=== PATIENT | female | born 1960 | race Caucasian/White ===

== ENCOUNTER → 2016-07-18 | Outpatient (CLI) | payer BC ==
[~2016-07-18] MED LIST: ASPEC81 PO; CALCTAB5 PO; CLB/200 PO; CLR10 PO; DULO60CA44 PO; LOSA1TAB PO; PANT40TA PO; [UNRECOGNIZED DRUG - CODE] PO
--- NOTE | 2016-07-18 16:28 | MAMMOGRAPHY REPORT ---
BILATERAL DIGITAL SCREENING MAMMOGRAM TOMOSYNTHESIS WITH CAD: 07/18/2016 CLINICAL HISTORY: Routine screening. Patient has no complaints. TECHNIQUE: Breast tomosynthesis in addition to standard 2D mammography was performed. Current study was also evaluated with a Computer Aided Detection (CAD) system. COMPARISON: Comparison is made to exams dated: 07/12/2015 mammogram and 07/07/2014 mammogram - [facility]. BREAST COMPOSITION: The tissue of both breasts is heterogeneously dense, which may obscure small ma sses. FINDINGS: No suspicious masses, calcifications, or areas of architectural distortion are noted in e ither breast. There has been no significant interval change compared to prior exams. Bilateral asym metries are stable. IMPRESSION: ACR BI-RADS CATEGORY 2: BENIGN There is no mammographic evidence of malignancy. A 1 year screening mammogram is recommended. The p atient will receive written notification of the results. Approximately 10% of breast cancers are not detected with mammography. A negative mammographic repor t should not delay biopsy if a clinically suggestive mass is present. Bettina Graham M.D. ah/:07/18/2016 15:03:05 Supervisor Whipped Topping: Laura GALAVIZ,R, M, [facility] letter sent: Normal 1/2 BI-RADS Code: ACR BI-RADS Category 2: Benign
== END ==
LOC: C.MAMM 14:41
PROVIDERS: ATTEND Family Medicine
DX: Z12.31 Encounter for screening mammogram for malignant neoplasm of breast (principal)

== ENCOUNTER → 2016-09-16 | Outpatient (CLI) | payer BC | END | disposition home or self-care (01) | LOC: C.PAPS 14:34 | PROVIDERS: ATTEND Physician Assistant | DX: Z01.419 Encounter for gynecological examination (general) (routine) without abnormal findings (principal) ==

== ENCOUNTER → 2017-02-20 | Outpatient (CLI) | payer BC ==
[~2017-02-20] VITALS: Ht 162.6 cm; Wt 92.2 kg
[2017-02-20 13:10] VITALS: BP 147/94; PULSE 72; Ht 162.6 cm; Wt 92.2 kg
== END | disposition home or self-care (01) ==
LOC: C.NEUR 12:51
PROVIDERS: ATTEND Internal Medicine Pulmonary Disease
DX: G47.33 Obstructive sleep apnea (adult) (pediatric) (principal)

== ENCOUNTER → 2017-03-25 | Outpatient (CLI) | payer BC ==
--- NOTE | 2017-03-26 06:23 | SPLIT NIGHT TECHNICIAN REPORT ---
[facility] Split Night Polysomnogram - Senior Risk Manager Report Study date: 03/25/2017 Referring Physician: Dr. Antione Carrillo DO Name: MCKENNA SERRANO Senior Risk Manager: JENNI Houser. Date of : 1960 Height: 57 years, Height 5' 4" Sex: Female Weight: 203.3 lbs Age: 57 Neck Circum:16.5in. BMI: Medications: 34.89 Losartan Potassium 100mg, ASA 81mg, B-12 1000mcg, Calcium, Celebrex 200mg, Cymbalta 60mg, Fiber Gummies, Flonase, gabapentin 100mg, Glucosamine Chondroitin, Losartan Potassium 100mg, Pantoprazole Sodium 20mg, Ventolin HFA 108mcg/act Patient History Study started on room air with no ETCO2 monitoring in room #8. 57 yr old female here tonight for a possible split study if AHI>15 after two hours. She has a history of EDS, loud snoring and bruxism. Her ESS=16/24. Neck circ=16.5inches Parameters Monitored NPSG: E1-M2, E2-M1, Fp1-M2, Fp2-M1, F3-M2, F4-M2, F4-M1, C3-M2, C4-M2, C4-M1, O1-M2, O2-M2, O2-M1, T3-M2, T4-M1, P3-M2, P4-M1, CHIN1, CHIN2, HR, EKG, Legs, PFLOW, SNOR, FLOW, CFLOW, Tidal Volume, THOR, ABDO, SpO2, PLTH, CPRESS, ETCO2 Wave, ETCO2, pH SLEEP SUMMARY DATA DIAGNOSTIC TREATMENT Lights Out: 10:09:04 PM 1:50:04 AM Lights On: 1:34:34 AM 6:12:34 AM Total Recording Time (TRT): 206.0 min. 262.5 min. Total Sleep Time (TST): 199.5 min. 232.0 min. NREM Time: 183.0 min. 146.0 min. REM Time: 16.5 min. 86.0 min. Sleep Period Time (SPT): 200.5 min. 247.5 min. Sleep Efficiency (SE): 97 % 88 % Sleep Latency: 5.0 min. 15.0 min. Arousal Index: 9.6 6.7 PAP Treatment Levels: 4, 5, 6, 7, 8, 9, 10, 11, 12, 13, 14 * Optimal Pressure(s) SLEEP STAGING DATA DIAGNOSTIC TREATMENT Duration (min) TST % Duration (min) TST % Stage Wake: 6.0 min. -- 30.5 min. -- WASO: 1.0 min. -- 15.5 min. -- NREM: 183.0 min. 92 % 146.0 min. 63 % Stage N1: 3.5 min. 2 % 12.5 min. 5 % Stage N2: 115.5 min. 58 % 118.5 min. 51 % Stage N3: 64.0 min. 32 % 15.0 min. 6 % REM: 16.5 min. 8 % 86.0 min. 37 % POSITIONAL DATA Event Count Index Event Count Index Supine: 52 16 84 21.7 Supine NREM: 37 12.1 28 11.5 Supine REM: 15 55 56 39 Non-Supine: N/A N/A N/A N/A Non-Supine NREM: N/A N/A N/A N/A Non-Supine REM: N/A N/A N/A N/A AROUSAL SUMMARY DATA: Event Count Index Event Count Index Apnea Arousals: 1 0.3 2 5.4 Hypopnea Arousals: 12 3.6 7 1.8 Snore Arousals: 5 1.5 3 0.8 PLM Arousals: 0 0.0 0 0.0 Non-Specific Arousals: 6 1.8 10 2.6 Total Arousals: 32 9.6 26 6.7 MYOCLONUS (PLM) Event Count Index Event Count Index PLM: 0 0.0 0 0.0 PLM AROUSAL: 0 0.0 0 0.0 PLM W/O AROUSAL 0 0.0 0 0.0 PLM W/RESP EVENT 0 0.0 0 0.0 MYOCLONUS (PLM) Event Count Index Event Count Index LM: 8 9.0 49 12.7 LM AROUSAL: 8 2.4 5 1.3 LM W/O AROUSAL LM W/RESP EVENT LM NON SPECIFIC 17 5.1 31 8.0 HEART RATE DATA DIAGNOSTIC TREATMENT Sleep (bpm): 60 59 REM (bpm): 92 94 NREM (bpm): 92 92 Tachycardia Count: 0 0 Tachycardia Duration: 0.00 0 Bradycardia Count: 0 0 Bradycardia Duration: 0.00 0 DIAGNOSTIC PORTION TREATMENT PORTION RESPIRATORY DATA Event Count Index Event Count Index AHI: -- 15.6 -- 21.7 RDI: -- 15.6 -- 22 Obstructive Apnea: 1 0.3 16 4.1 Central Apnea: 0 0.0 5 1.3 Mixed Apnea: 0 0.0 0 0.0 Hypopnea: 51 15.3 63 16.3 RERA: 0 0.0 0 0.0 Total Apneas: 1 0.3 21 5.4 RESPIRATORY DATA REM NREM SLEEP REM NREM SLEEP Supine Position: Obstructive Apneas: 0 1 1 14 2 16 Central Apneas: 0 0 0 0 5 5 Mixed Apneas: 0 0 0 0 0 0 Hypopneas: 15 36 51 42 21 63 RERA 0 0 0 0 0 0 Total Supine Events: 15 37 52 56 28 84 Supine AHI: 55 12.1 16 39 11.5 21.7 Supine RDI: 54.5 12.1 15.6 39.1 11.5 21.7 REM NREM SLEEP REM NREM SLEEP Non-Supine Position: Obstructive Apneas: N/A N/A N/A N/A N/A N/A Central Apneas: N/A N/A N/A N/A N/A N/A Mixed Apneas: N/A N/A N/A N/A N/A N/A Hypopneas: N/A N/A N/A N/A N/A N/A RERA N/A N/A N/A N/A N/A N/A Total Supine Events: N/A N/A N/A N/A N/A N/A Supine AHI: N/A N/A N/A N/A N/A N/A Supine RDI: N/A N/A N/A N/A N/A N/A OXYGEN DESTAURATION DATA: Event Count Index Event Count Index REM Desaturations: 19 69.1 53 37.0 NREM Desaturations: 48 15.7 39 16.0 SNORE DATA DIAGNOSTIC TREATMENT Snore Time: 6.8 2:05:04 AM Snore TST%: 2 1 Snore Arousal Count: 5 3 Snore Arousal Index: 1.5 0.8 Desaturation Event Summary: Minimum %SpO2 Event Count Mean/Min/Max Duration(sec.) Desaturation Index % Time In Bed > 90 157 25.4 / 6.3 / 60.0 24.5 82.8 86 - 90 16 21.4 / 6.0 / 56.8 12.2 17.0 81 - 85 0 N/A 0.0 0.2 76 - 80 0 N/A 0.0 0.0 71 - 75 0 N/A 0.0 0.0 66 - 70 0 N/A 0.0 0.0 61 - 65 0 N/A 0.0 0.0 56 - 60 0 N/A 0.0 0.0 51 - 55 0 N/A 0.0 0.0 < 50 0 N/A 0.0 0.0 OXYGEN SATURATION DATA DIAGNOSTIC TREATMENT SpO2 Mean Sleep: 92 % 93 % SpO2 Mean REM: 92 % 94 % SpO2 Mean NREM: 92 % 92 % SpO2 Minimum Sleep: 84 % 84 % SpO2 Minimum REM: 84 % 86 % SpO2 Minimum NREM: 84 % 84 % Time Below 90% (TST): 7.0 16.9 Time Below 88% (TST): 2.0 2.3 Total REM NREM Awake <50% 0.0 min. 0.0 min. 0.0 min. 0.0 min. 51 - 60% 0.0 min. 0.0 min. 0.0 min. 0.0 min. 61 - 70% 0.0 min. 0.0 min. 0.0 min. 0.0 min. 71 - 80% 0.0 min. 0.0 min. 0.0 min. 0.0 min. 81 - 90% 79.9 min. 11.5 min. 66.5 min. 1.9 min. 91 - 100% 384.0 min. 91.0 min. 262.0 min. 31.1 min. Average 93 94 92 93 Minimum SpO2 82 84 84 82 Desaturation Event Index 20.9 42.1 15.9 9.9 # Desat. Events below 89% 43 15 25 3 Time(%) with Saturation below 89% 2.3 0.8 1.4 0.1 Time(min.) with Saturation below 89% 10.8 3.7 6.6 0.5 Recording Senior Risk Manager Comments: Ms. Serrano slept in the supine position. No cardiac arrhythmia or PLM's noted. No bruxism noted. Snoring was noted and scored as a 3 on a scale of 1 through 5. (0=no snoring, 5=snoring loud enough to be heard through a closed door or down the hill way) At 1:15am she had met specific Split-Night criteria during the diagnostic portion of this study. CPAP was initiated at +4 CMH2O and up-titrated to a level of +14 CMH2O. An optimal pressure was not obtained because there was not enough time. If she would have had a few more hours to sleep it would have been a better study. Her second REM period with cpap did not happen until after 5am. A small Quattro Air full face mask by [employer] was used during titration. She awoke to use the restroom 1 time during the night. She stated that she slept a little worse than when at home. The final report will be interpreted and signed by a sleep physician. The completed physician report will then be placed in the patient medical record. Therapy Event: Therapy (cm H20) 0 4 5 6 7 8 Total Time at Pressure (min.) 205.5 22.6 13.4 53.8 8.5 11.4 TST at Pressure (min.) 199.5 6.6 13.4 52.8 8.5 10.4 # Periods 1 1 1 1 1 1 Sleep Onset (min.) 5.0 15.0 0.0 0.0 0.0 0.0 REM Onset (min.) 120.0 N/A N/A 48.6 0.0 0.0 Sleep Efficiency % 97 29 100 98 100 91 Wakefulness (%) 2.9 70.8 0.0 1.9 0.0 8.8 Wakefulness (min.) 6.0 16.0 0.0 1.0 0.0 1.0 NREM 1 (%) 1.7 4.4 3.7 2.8 0.0 8.8 NREM 1 (min.) 3.5 1.0 0.5 1.5 0.0 1.0 NREM 2 (%) 56.2 24.7 96.3 57.7 0.0 0.0 NREM 2 (min.) 115.5 5.6 12.9 31.1 0.0 0.0 NREM 3 (%) 31.1 0.0 0.0 27.9 0.0 0.0 NREM 3 (min.) 64.0 0.0 0.0 15.0 0.0 0.0 REM (%) 8.0 0.0 0.0 9.8 100.0 82.4 REM (min.) 16.5 0.0 0.0 5.3 8.5 9.4 # Arousals 32 0 2 4 1 2 Arousal Index 9.6 0.0 9.0 4.5 7.0 11.6 # Snore 361 6 6 9 10 1 Snore Index 108.6 54.7 26.9 10.2 70.4 5.8 AHI 15.6 109.3 26.9 5.7 70.4 40.5 AHI Supine 15.6 109.3 26.9 5.7 70.4 40.5 AHI Non-Supine N/A N/A N/A N/A N/A N/A NREM AHI 12.1 109.3 26.9 1.3 N/A 0.0 REM AHI 54.5 N/A N/A 45.3 70.4 44.9 RDI 15.6 109.3 26.9 5.7 70.4 40.5 # Obstructive 1 1 0 3 4 5 # Central Ap 0 4 0 0 0 0 # Mixed 0 0 0 0 0 0 # Hypopneas 51 7 6 2 6 2 RERAS 0 0 0 0 0 0 Total Respiratory Events 52 12 6 5 10 7 Time Below SpO2 89.00% (min.) 3.9 0.8 0.9 3.4 0.2 0.1 Mean NREM SpO2 (%) 92 91 90 91 N/A 94 Mean REM SpO2 (%) 92 N/A N/A 91 92 92 Mean Sleep SpO2 (%) 92 91 90 91 92 93 Min NREM SpO2 (%) 84 86 85 84 N/A 91 Min REM SpO2 (%) 84 N/A N/A 86 88 88 Position Supine (min.) 199.5 6.6 13.4 52.8 8.5 10.4 Position Non-supine (min.) 0.0 0.0 0.0 0.0 0.0 0.0 LM Index Sleep 9.0 9.1 9.0 9.1 21.1 17.4 LM Index NREM 8.5 9.1 9.0 7.6 N/A 0.0 LM Index REM 14.5 N/A N/A 22.7 21.1 19.2 Mean Heart Rate (bpm) 60 53 56 60 66 64 Min Heart Rate (bpm) 51 50 52 55 60 57 Therapy (cm H20) 9 10 11 12 13 14 Total Time at Pressure (min.) 25.5 76.6 19.0 14.5 8.0 9.2 TST at Pressure (min.) 16.0 74.1 19.0 14.0 8.0 9.2 # Periods 1 1 1 1 1 1 Sleep Onset (min.) 0.0 0.0 0.0 0.0 0.0 0.0 REM Onset (min.) 0.0 66.8 0.0 0.0 0.0 0.0 Sleep Efficiency % 62 96 100 96 100 100 Wakefulness (%) 37.2 3.3 0.0 3.4 0.0 0.0 Wakefulness (min.) 9.5 2.5 0.0 0.5 0.0 0.0 NREM 1 (%) 5.9 7.8 0.0 6.9 0.0 0.0 NREM 1 (min.) 1.5 6.0 0.0 1.0 0.0 0.0 NREM 2 (%) 42.0 76.1 0.0 0.0 0.0 0.0 NREM 2 (min.) 10.7 58.3 0.0 0.0 0.0 0.0 NREM 3 (%) 0.0 0.0 0.0 0.0 0.0 0.0 NREM 3 (min.) 0.0 0.0 0.0 0.0 0.0 0.0 REM (%) 14.9 12.8 100.0 89.7 100.0 100.0 REM (min.) 3.8 9.8 19.0 13.0 8.0 9.2 # Arousals 2 10 2 3 0 0 Arousal Index 7.5 8.1 6.3 12.9 0.0 0.0 # Snore 0 4 1 0 0 0 Snore Index 0.0 3.2 3.2 0.0 0.0 0.0 AHI 18.7 10.5 34.8 25.7 44.9 19.5 AHI Supine 18.7 10.5 34.8 25.7 44.9 19.5 AHI Non-Supine N/A N/A N/A N/A N/A N/A NREM AHI 14.7 4.7 N/A 60.0 N/A N/A REM AHI 31.5 49.1 34.8 23.1 44.9 19.5 RDI 18.7 10.5 34.8 25.7 44.9 19.5 # Obstructive 1 1 1 0 0 0 # Central Ap 1 0 0 0 0 0 # Mixed 0 0 0 0 0 0 # Hypopneas 3 12 10 6 6 3 RERAS 0 0 0 0 0 0 Total Respiratory Events 5 13 11 6 6 3 Time Below SpO2 89.00% (min.) 0.0 0.7 0.0 0.1 0.2 0.0 Mean NREM SpO2 (%) 93 94 N/A 97 N/A N/A Mean REM SpO2 (%) 93 94 95 95 95 96 Mean Sleep SpO2 (%) 93 94 95 95 95 96 Min NREM SpO2 (%) 90 87 N/A 95 N/A N/A Min REM SpO2 (%) 89 87 89 88 87 93 Position Supine (min.) 16.0 74.1 19.0 14.0 8.0 9.2 Position Non-supine (min.) 0.0 0.0 0.0 0.0 0.0 0.0 LM Index Sleep 7.5 13.8 19.0 21.4 7.5 6.5 LM Index NREM 0.0 8.4 N/A 0.0 N/A N/A LM Index REM 31.5 49.1 19.0 23.1 7.5 6.5 Mean Heart Rate (bpm) 56 57 61 58 61 62 Min Heart Rate (bpm) 51 51 54 51 54 57
--- NOTE | 2017-03-28 10:15 | Sleep Study ---
Sleep Study Report Date of Service: 03/25/2017 Sleep Study Report Clinical data: The patient is a 57-year-old female with a BMI of 34.89. She has a history of snoring and excessive daytime somnolence. She has an Severance Sleepiness Scale score of 16 out of a possible 24. This study is a split in-lab study. The initial part of the study is the diagnostic portion. The 2nd portion of the study is treatment with nasal CPAP. Sleep architecture: During the diagnostic portion of the study the total sleep period was 200.5 minutes. Total sleep time was 199.5 minutes. The sleep efficiency was high at 97 percent. The sleep latency was 5 minutes. Sleep consisted of stage N1 2 percent, stage N2 58 percent, stage N3 32 percent, stage REM 8 percent. During the therapeutic portion of the study the patient's nocturnal events were treated with nasal CPAP. The total sleep period was 247.5 minutes. The total sleep time was 232 minutes. The sleep efficiency was 88 percent. The sleep latency was 15 minutes. Sleep consisted of stage N1 5 percent, stage N2 51 percent, stage N3 6 percent, stage REM 37 percent. Arousal data: During the diagnostic portion of the study the patient had 32 arousals including 1 apnea arousal, 12 hypopnea arousals, 5 snoring arousals, and 6 nonspecific arousals. The arousal index was 9.6. During the therapeutic portion of the study the patient had a total of 26 arousals including 2 apnea arousals, 7 hypopnea arousals, 3 snoring arousals, and 10 nonspecific arousals. The arousal index was 6.7. PLM data: The patient had a normal periodic limb movement recording including both the diagnostic and therapeutic portions. EKG: The patient had a normal sinus rhythm. The cardiac rate 59-94 beats per minute. No arrhythmias were noted. Respiratory data: During the diagnostic portion of the study the patient had a total of 52 respiratory events including 1 obstructive apnea and 51 hypopneas. Hypopneas were scored according to the 4 percent desaturation rule. The apnea-hypopnea index was moderately elevated at 15.6. During the therapeutic portion of the study the patient had a total of 84 respiratory events including 16 obstructive apneas, 5 central apneas, and 63 hypopneas. The apnea-hypopnea index was elevated at 21.7. Oximetry data: During the diagnostic portion of the study the mean saturation was 92 percent. The minimum saturation was 84 percent. There was a total of 2 minutes less than 88 percent. During the therapeutic portion of the study the mean saturation was 93 percent. The minimum saturation was 84 percent. There was a total of 2.3 minutes with saturations less than 88 percent. Concrete Boom Operator comments: The patient slept in the supine position. No cardiac arrhythmia or PLMS noted. No bruxism noted. Snoring was noted and scored as a 3 on a scale of 1 through 5. At 1:15 a.m. she met specific split night criteria during the diagnostic portion of the study. CPAP was initiated at 4 centimeters and up titrated to a level of 14 centimeters. An optimum pressure was not obtained because there was not enough time. Her 2nd REM period with CPAP did not happen until after 5 a.m.. A small Quattro air fullface mask by [employer] was used. She awaken to use the restroom 1 time during the night. Impressions: 1. Obstructive sleep apnea-moderate Comments: The patient had moderate sleep apnea. She met criteria to do a split study. With the addition of nasal CPAP she did have REM rebound. However she developed an episode of REM after 5 a.m. and had persistent symptoms despite adjustments in CPAP. She persisted with a moderate number of events. It is likely that she needs a higher pressure than the final pressure which was achieved at 14 centimeters. Recommendations: 1. It is advised that the patient be treated with nasal CPAP. It would be suggested that she be treated with auto CPAP in light of the lack of resolution of sleep apnea at 14 centimeters. Would have a minimum CPAP of 6 and a maximum CPAP of 20. 2. It is suggested that the patient avoid sleeping in the supine position if possible. This entire sleep study was done with the patient supine. 3. Weight reduction is advised in light of the elevation of body mass index at 34.89. 4. The patient will need follow-up between day 31 day 90 of which she is treated with CPAP. 5. It is advised that she be ordered a [employer] Quattro air full face mask size small. Copies To 1: Antione Carrillo DO; Rachel Dawkins M.D.
== END | disposition home or self-care (01) ==
LOC: C.NEUR 20:00
PROVIDERS: ATTEND Internal Medicine Pulmonary Disease
DX: G47.33 Obstructive sleep apnea (adult) (pediatric) (principal)

== ENCOUNTER → 2017-08-07 | Outpatient (CLI) | payer BC ==
--- NOTE | 2017-08-08 14:20 | MAMMOGRAPHY REPORT ---
BILATERAL DIGITAL SCREENING MAMMOGRAM TOMOSYNTHESIS WITH CAD: 08/07/2017 CLINICAL HISTORY: Routine screening. Patient has no complaints. TECHNIQUE: Breast tomosynthesis in addition to standard 2D mammography was performed. Current study was also evaluated with a Computer Aided Detection (CAD) system. COMPARISON: Comparison is made to exams dated: 07/18/2016 mammogram, 07/12/2015 mammogram, and 07/07/2014 mammogram - [facility]. BREAST COMPOSITION: The tissue of both breasts is heterogeneously dense, which may obscure small mas ses. FINDINGS: No suspicious masses, calcifications, or areas of architectural distortion are noted in ei ther breast. There has been no significant interval change compared to prior exams. Bilateral asymme tries are stable. IMPRESSION: ACR BI-RADS CATEGORY 2: BENIGN There is no mammographic evidence of malignancy. A 1 year screening mammogram is recommended. The pa tient will receive written notification of the results. Approximately 10% of breast cancers are not detected with mammography. A negative mammographic report should not delay biopsy if a clinically suggestive mass is present. Bettina Graham M.D. ah/:08/07/2017 14:52:55 Field Assembly Supervisor: Daysi Zheng, [facility] letter sent: Normal 1/2 BI-RADS Code: ACR BI-RADS Category 2: Benign
== END | disposition home or self-care (01) ==
LOC: C.MAMM 14:31
PROVIDERS: ATTEND Family Medicine
DX: Z12.31 Encounter for screening mammogram for malignant neoplasm of breast (principal)